=== PATIENT | male | born 1995 | race Two or more races ===

== ENCOUNTER 2022-01-28 08:28 | Emergency (ER) | payer OTHER ==
[~2022-01-28] VITALS: Ht 195.6 cm; Wt 182.3 kg
[2022-01-28] MEDS ORDERED: ONDANSETRON ODT4 MG PO (13:41)
[2022-01-28] MEDS ORDERED: PEPCID AC20 MG PO (13:41)
== END 2022-01-28 14:04 ==
LOC: ER 08:28
DX: B34.9 Viral infection, unspecified (principal); K52.9 Noninfective gastroenteritis and colitis, unspecified; E66.9 Obesity, unspecified; Z20.822 Contact with and (suspected) exposure to COVID-19

== ENCOUNTER 2022-03-31 21:08 | Emergency (ER) | payer OTHER ==
[~2022-03-31] VITALS: Ht 195.6 cm; Wt 190.5 kg
[~2022-03-31 21:08] MED LIST: ONDANSETRON ODT4 MG PO; PEPCID AC20 MG PO
[2022-03-31] MEDS ORDERED: BACTRIM DS TAB1 EACH PO (22:28)
[2022-03-31] MEDS ORDERED: DICLOFENAC SODI75 MG PO (22:28)
== END 2022-03-31 22:39 | disposition home or self-care (01) ==
LOC: ER 21:08
DX: L03.115 Cellulitis of right lower limb (principal)

== ENCOUNTER 2022-04-01 10:10 | Emergency (ER) | payer OTHER ==
[~2022-04-01] VITALS: Ht 195.6 cm; Wt 186.0 kg
[~2022-04-01 10:10] MED LIST changes: +BACTRIM DS TAB1 EACH PO; +DICLOFENAC SODI75 MG PO
== END 2022-04-01 14:30 | disposition home or self-care (01) ==
LOC: ER 10:10
DX: L03.115 Cellulitis of right lower limb (principal); Z20.828 Contact with and (suspected) exposure to other viral communicable diseases

== ENCOUNTER 2022-05-03 23:33 | Emergency (ER) | payer OTHER ==
[~2022-05-03] VITALS: Ht 195.6 cm; Wt 186.0 kg
== END 2022-05-04 02:42 | disposition home or self-care (01) ==
LOC: ER 23:33
DX: M25.562 Pain in left knee (principal)

== ENCOUNTER 2022-11-20 08:11 | Emergency (ER) | payer OTHER ==
[~2022-11-20] VITALS: Ht 195.6 cm; Wt 205.0 kg
== END 2022-11-20 11:21 | disposition home or self-care (01) ==
LOC: ER 08:11
DX: S43.491A Other sprain of right shoulder joint, initial encounter (principal); X58.XXXA Exposure to other specified factors, initial encounter; Y93.89 Activity, other specified; Y92.89 Other specified places as the place of occurrence of the external cause; M25.511 Pain in right shoulder

== ENCOUNTER 2022-11-27 14:05 | Emergency (ER) | payer OTHER ==
[~2022-11-27] VITALS: Ht 195.6 cm; Wt 205.5 kg
[2022-11-27] MEDS ORDERED: LISINOPRIL5 MG PO (14:18)
== END 2022-11-27 18:18 | disposition home or self-care (01) ==
LOC: ER 14:05
DX: R47.81 Slurred speech (principal); E66.01 Morbid (severe) obesity due to excess calories; I10 Essential (primary) hypertension

== ENCOUNTER 2023-01-25 07:19 | Emergency (ER) | payer OTHER ==
[~2023-01-25] VITALS: Ht 195.6 cm; Wt 204.1 kg
[~2023-01-25 07:19] MED LIST changes: +LISINOPRIL5 MG PO
== END 2023-01-25 11:36 | disposition home or self-care (01) ==
LOC: ER 07:19
DX: K29.70 Gastritis, unspecified, without bleeding (principal); B34.8 Other viral infections of unspecified site

== ENCOUNTER 2023-01-30 10:13 | Emergency (ER) | payer OTHER ==
[~2023-01-30] VITALS: Ht 195.6 cm; Wt 195.0 kg
[2023-01-30] MEDS ORDERED: AMLODIPINE-OLM1 EAC2 PO (10:24)
== END 2023-01-30 15:47 | disposition home or self-care (01) ==
LOC: ER 10:13
DX: K29.70 Gastritis, unspecified, without bleeding (principal)

== ENCOUNTER 2023-04-16 19:32 | Emergency (ER) | payer OTHER ==
[~2023-04-16] VITALS: Ht 195.6 cm; Wt 204.1 kg
[~2023-04-16 19:32] MED LIST changes: +AMLODIPINE-OLM1 EAC2 PO
== END 2023-04-16 20:27 | disposition home or self-care (01) ==
LOC: ER 19:32
DX: L72.3 Sebaceous cyst (principal)

== ENCOUNTER 2023-04-26 06:46 | Emergency (ER) | payer OTHER ==
[~2023-04-26] VITALS: Ht 195.6 cm; Wt 204.1 kg
== END 2023-04-26 10:35 | disposition home or self-care (01) ==
LOC: ER 06:46
DX: L02.11 Cutaneous abscess of neck (principal)

== ENCOUNTER 2023-07-08 16:56 | Emergency (ER) | payer OTHER ==
[~2023-07-08] VITALS: Ht 195.6 cm; Wt 195.0 kg
== END 2023-07-08 20:14 | disposition home or self-care (01) ==
LOC: ER 16:57
DX: M54.89 Other dorsalgia (principal); L03.116 Cellulitis of left lower limb; L03.115 Cellulitis of right lower limb

== ENCOUNTER 2023-08-18 10:24 | Emergency (ER) | payer OTHER ==
[~2023-08-18] VITALS: Ht 195.6 cm; Wt 204.1 kg
[2023-08-18 13:58] LABS: HEMATOCRIT 39.4 % (39.0-48.0); HEMOGLOBIN 13.1 g/dL (13-16.00); MEAN CELL VOLUME 89.8 fL (80.0-100.00); MEAN CORPUSCULAR HEMOGLOBIN 29.8 pg (27.00-32.0); MEAN CORPUSCULAR HGB CONC 33.2 g/dl (32.0-36.0); PLATELET COUNT 245 K/uL (150-450); RED BLOOD COUNT 4.39 M/uL (4.00-6.00); RED CELL DISTRIBUTION WIDTH 13.7 % (11.5-14.5)
== END 2023-08-18 17:25 | disposition home or self-care (01) ==
LOC: ER 10:24
PROVIDERS: General Practice
DX: L03.116 Cellulitis of left lower limb (principal); L03.115 Cellulitis of right lower limb

== ENCOUNTER 2023-08-26 07:26 | Emergency (ER) | payer OTHER ==
[~2023-08-26] VITALS: Ht 195.6 cm; Wt 195.0 kg
[2023-08-26 09:03] LABS: HEMATOCRIT 38.7 % (39.0-48.0); HEMOGLOBIN 12.9 g/dL (13-16.00); MEAN CELL VOLUME 89.7 fL (80.0-100.00); MEAN CORPUSCULAR HEMOGLOBIN 29.8 pg (27.00-32.0); MEAN CORPUSCULAR HGB CONC 33.2 g/dl (32.0-36.0); PLATELET COUNT 237 K/uL (150-450); RED BLOOD COUNT 4.32 M/uL (4.00-6.00); RED CELL DISTRIBUTION WIDTH 13.6 % (11.5-14.5)
[2023-08-26 09:24] LABS: CALCIUM 8.9 mg/dL (8.5-10.1); CREATININE SERUM 0.65 mg/dL (0.70-1.30); GFR 145.23; POTASSIUM 3.7 mEq/L (3.5-5.1)
[2023-08-26 10:22] LABS: PH,URINE 7.5 (5.0-8.0); URINE APPEARANCE Clear; URINE BILIRRUBIN Negative (NEGATIVE); URINE BLOOD Negative; URINE COLOR Yellow; URINE GLUCOSE Negative (NEGATIVE); URINE LEUKOCYTE Trace; URINE NITRATE Negative; URINE PROTEIN 30 (NEGATIVE)
[2023-08-26 10:26] LABS: URINE BACTERIA 210.3 uL (0.0-1933); URINE RBC 5.8 uL (0.0-20.8)
== END 2023-08-26 16:43 | disposition home or self-care (01) ==
LOC: ER 07:26
PROVIDERS: General Practice
DX: R11.10 Vomiting, unspecified (principal); Z20.822 Contact with and (suspected) exposure to COVID-19

== ENCOUNTER 2024-05-29 17:19 | Emergency (ER) | payer OTHER ==
[~2024-05-29] VITALS: Ht 195.6 cm; Wt 226.8 kg
[~2024-05-29 17:19] MED LIST changes: +LOSARTAN POTASS25 MG PO
[2024-05-29] MEDS ORDERED: KETOROLAC TROMETHAMINE 30 MG VIAL IM STA (18:24)
[2024-05-29] MEDS ORDERED: ORPHENADRINE CITRATE 30 MG/ML AMPUL IM STA (18:25)
== END 2024-05-29 19:22 | disposition home or self-care (01) ==
LOC: ER 17:20
DX: G44.209 Tension-type headache, unspecified, not intractable (principal)
CPT/HCPCS: 96372; 99282; J1885; J2360

== ENCOUNTER 2024-07-23 21:35 | Emergency (ER) | payer OTHER ==
[~2024-07-23] VITALS: Ht 195.6 cm; Wt 226.8 kg
[2024-07-23] MEDS ORDERED: KAPSPARGO SPRIN50 MG PO (22:22)
[2024-07-23] MEDS ORDERED: RINGERS SOLUTION,LACTATED 1,000 ML IV ONE (22:30)
[2024-07-23 23:19] LABS: HEMATOCRIT 41.6 % (39.0-48.0); HEMOGLOBIN 13.8 g/dL (13-16.00); MEAN CORPUSCULAR HEMOGLOBIN 30.5 pg (27.00-32.0); MEAN CORPUSCULAR HGB CONC 33.2 g/dl (32.0-36.0); PLATELET COUNT 167 K/uL (150-450); RED BLOOD COUNT 4.53 M/uL (4.00-6.00); RED CELL DISTRIBUTION WIDTH 12.5 % (11.5-14.5)
[2024-07-23 23:42] LABS: ABG PH 7.442 (7.35-7.45); ABG PO2 83.7 mmHg (80-100); ABG pCO2 39.7 mmHg (35-45); BASE EXCESS 2.3 mmol/l; BICARBONATE 26.5 mmol/l (23-25); SaO2 96.7 %; Tco2 27.7 mmol/l; allen test SATISFACTORY; o2 21 %; puncture site RADIAL RIGHT
[2024-07-24 00:15] LABS: PH,URINE 5.5 (5.0-8.0); URINE APPEARANCE Clear; URINE BILIRRUBIN Negative (NEGATIVE); URINE BLOOD Negative; URINE COLOR Yellow; URINE KETONE Negative (NEGATIVE); URINE LEUKOCYTE Negative; URINE NITRATE Negative; URINE PROTEIN Negative (NEGATIVE); URINE UROBILINOGEN 0.2 E.U./dl
[2024-07-24 00:20] LABS: URINE BACTERIA 20.1 uL (0.0-1933); URINE EPITHELIAL CELLS 3.2 uL (0.0-38.8); URINE RBC 7.1 uL (0.0-20.8); URINE WBC 22.7 uL (0.0-23.2)
[2024-07-24 00:24] LABS: INR 1.07; PARTIAL THROMBOPLASTIN TIME 27.3 SECONDS (22.0-34.0); PROTHROMBIN TIME 11.6 SECONDS (9.0-11.5)
[2024-07-24 00:30] LABS: ALBUMIN 3.5 gm/dL (3.4-5.0); BILIRUBIN TOTAL 0.41 mg/dL (0.3-1.2); CREATININE SERUM 0.82 mg/dL (0.70-1.30); GFR 110.32; GLOBULINA 4.8 G/DL (2.4-3.5); MAGNESIUM 1.9 mg/dL (1.8-2.4); PHOSPHOROUS 4.2 mg/dL (2.5-4.9); POTASSIUM 4.28 mEq/L (3.5-5.1); TOTAL PROTEIN 8.3 gm/dL (6.4-8.2)
[2024-07-24] MEDS ORDERED: INSULIN REGULAR, HUMAN 1,000 UNIT/10 ML UNITS IV STA (00:43)
[2024-07-24] MEDS ORDERED: INSULIN REGULAR, HUMAN 1,000 UNIT/10 ML UNITS SUBCUTANEO STA ×2 (00:44→07:43)
[2024-07-24 00:53] LABS: URINE GLUCOSE >=1000 MG/DL (NEGATIVE); URINE MUCUS MODERATE
[2024-07-24] MEDS ORDERED: RINGERS SOLUTION,LACTATED 1,000 ML IV STA (02:47)
== END 2024-07-24 08:20 | disposition home or self-care (01) ==
LOC: ER 21:37
PROVIDERS: General Practice
DX: R73.9 Hyperglycemia, unspecified (principal); I10 Essential (primary) hypertension; G47.30 Sleep apnea, unspecified; Z20.822 Contact with and (suspected) exposure to COVID-19

== ENCOUNTER 2024-10-12 16:43 | Emergency (ER) | payer OTHER ==
[~2024-10-12] VITALS: Ht 195.6 cm; Wt 226.8 kg
[~2024-10-12 16:43] MED LIST changes: +KAPSPARGO SPRIN50 MG PO
[2024-10-12 17:08] VITALS: BP 139/83; O2SAT 98
[2024-10-12] MEDS ORDERED: GLUMETZA500 MG (17:08)
[2024-10-12] MEDS ORDERED: KETOROLAC TROMETHAMINE 30 MG VIAL ONE (17:40)
[2024-10-12] MEDS ORDERED: KETOROLAC TROMETHAMINE 30 MG VIAL IV ONE (17:45)
[2024-10-12] MEDS ORDERED: 0.9 % SODIUM CHLORIDE 1,000 ML IV SCH (17:45)
[2024-10-12 18:38] LABS: BILIRUBIN TOTAL 0.45 mg/dL (0.3-1.2); CALCIUM 8.7 mg/dL (8.5-10.1); CREATININE SERUM 0.54 mg/dL (0.70-1.30); GFR 177.46; POTASSIUM 3.89 mEq/L (3.5-5.1)
[2024-10-12 19:53] LABS: URINE APPEARANCE Clear; URINE BILIRRUBIN Negative (NEGATIVE); URINE BLOOD Negative; URINE COLOR Yellow; URINE GLUCOSE Negative (NEGATIVE); URINE KETONE Negative (NEGATIVE); URINE LEUKOCYTE Negative; URINE NITRATE Negative; URINE PROTEIN Negative (NEGATIVE); URINE UROBILINOGEN 0.2 E.U./dl
[2024-10-12 19:57] LABS: URINE BACTERIA 106.3 uL (0.0-1933); URINE EPITHELIAL CELLS 15.4 uL (0.0-38.8); URINE WBC 2.8 uL (0.0-23.2)
[2024-10-12 20:00] LABS: URINE RBC 0.5 uL (0.0-20.8)
[2024-10-12 21:34] LABS: HEMATOCRIT 39.1 % (39.0-48.0); HEMOGLOBIN 13.2 g/dL (13-16.00); MEAN CELL VOLUME 91.1 fL (80.0-100.00); MEAN CORPUSCULAR HEMOGLOBIN 30.8 pg (27.00-32.0); MEAN CORPUSCULAR HGB CONC 33.8 g/dl (32.0-36.0); PLATELET COUNT 226 K/uL (150-450); RED BLOOD COUNT 4.29 M/uL (4.00-6.00); RED CELL DISTRIBUTION WIDTH 12.8 % (11.5-14.5)
[2024-10-13] MEDS ORDERED: CEFTRIAXONE SODIUM 1,000 MG VIAL IV ONE (00:15)
[2024-10-13] MEDS ORDERED: CEFTRIAXONE SODIUM 1,000 MG VIAL ONE (00:27)
[2024-10-13] MEDS ORDERED: CIPRO500 MG PO (04:15)
[2024-10-13] MEDS ORDERED: LEVSIN/SL0.125 MG SL (04:15)
[2024-10-13] MEDS ORDERED: PEPCID40 MG PO (04:15)
== END 2024-10-13 04:34 ==
LOC: ER 16:45
PROVIDERS: General Practice
DX: R10.9 Unspecified abdominal pain (principal); I10 Essential (primary) hypertension; E11.9 Type 2 diabetes mellitus without complications; Z79.84 Long term (current) use of oral hypoglycemic drugs; R16.2 Hepatomegaly with splenomegaly, not elsewhere classified
CPT/HCPCS: 36415; 76700; 96365; 96366; 99284; J0696; J1885; J7030

== ENCOUNTER 2025-02-21 07:25 | Emergency (ER) | payer OTHER ==
[~2025-02-21] VITALS: Ht 195.6 cm; Wt 225.9 kg
[~2025-02-21 07:25] MED LIST changes: +CIPRO500 MG PO; +GLUMETZA500 MG; +LEVSIN/SL0.125 MG SL; +PEPCID40 MG PO
[2025-02-21] MEDS ORDERED: IBUPROFEN800 MG PO ×2 (09:37→09:38)
[2025-02-21] MEDS ORDERED: KETOROLAC TROMETHAMINE 60 MG VIAL IM ONE (09:45)
[2025-02-21] MEDS ORDERED: DEXAMETHASONE SODIUM PHOSPHATE 4 MG/ML VIAL IM ONE (09:45)
== END 2025-02-21 12:39 | disposition home or self-care (01) ==
LOC: ER 07:25
DX: M75.52 Bursitis of left shoulder (principal); I10 Essential (primary) hypertension